=== PATIENT | male | born 1995 | race African-American/Black ===

== ENCOUNTER 2022-09-22 19:14 | Emergency (ER) | payer SELFPAY ==
[~2022-09-22] VITALS: Ht 198.1 cm; Wt 69.0 kg
[2022-09-22] MEDS ORDERED: IBUP800T27 PO (22:21)
[2022-09-22] MEDS ORDERED: CEPH-510 PO (22:21)
[2022-09-22] MEDS ORDERED: CLIN300C8 PO (22:21)
[2022-09-22] MEDS ORDERED: KETOROLAC TROMETH 60MG/2ML VIAL IM ONE (22:30)
[2022-09-22] MEDS ORDERED: cefTRIAXone SOD 1,000 MG VL IM ONE (22:30)
[2022-09-22 22:46] VITALS: BP 132/79
== END 2022-09-22 22:46 | disposition home or self-care (01) ==
LOC: ER 19:16
DX: L03.116 Cellulitis of left lower limb (principal); F12.10 Cannabis abuse, uncomplicated
CPT/HCPCS: 73560; 96372; 99284; J0696; J1885